=== PATIENT | female | born 1945 | race Caucasian/White ===

== ENCOUNTER 2017-10-28 16:02 | Inpatient (IN) | payer MEDICARE, MEDICAID ==
[2017-10-28] VITALS (8 sets, daily range): BP systolic 105–125; BP diastolic 58–79
[~2017-10-28] VITALS: Ht 157.5 cm; Wt 79.7 kg
[~2017-10-28 16:02] MED LIST: ASP81EC PO; BECL0.07 IN; METH5TAB77 PO; METO25TA5 PO; MON10T PO; PAR20T PO; PRAV20TA3 PO; SOLI5TAB6 PO
[2017-10-28] MEDS ORDERED: SODIUM CHLORIDE 0.9% 1,000 ML IV ONE (16:30)
[2017-10-28 16:39] LABS: Neutrophils # (auto) 5.7 uL; Nucleated Red Blood Cells % 0.1 %
[2017-10-28 16:41] LABS: Basophils # (auto) 0.1 uL; Basophils % (auto) 0.9 % (0.0-2.0); Eosinophils # (auto) 0 uL; Eosinophils % (auto) 0.6 % (0.0-7.0); Hematocrit 19.1 % (36.0-46.0); Lymphocytes # (auto) 1.2 uL; Lymphocytes % (auto) 16.3 % (10.0-50.0); Mean Corpuscular Hgb Conc. 29.9 g/dL (32.0-36.0); Mean Corpuscular Volume 70.1 fL (80.0-100.0); Monocytes # (auto) 0.4 uL; Neutrophils % (auto) 76.2 % (37.0-80.0); Platelet Count (auto) 385 10^3/uL (140-450); Red Blood Cells 2.73 10^6/uL (4.0-5.20); Red Cell Distribution Width 19.1 % (11.8-14.3); White Blood Cell 7.5 10^3/uL (4.4-10.8)
[2017-10-28 16:55] LABS: Albumin 2.8 g/dL (3.4-5.0); Calcium 8.2 mg/dL (8.5-10.1); Potassium 3.1 mmol/L (3.5-5.1)
[2017-10-28 16:57] LABS: BUN/Creatinine Ratio 8.3
[2017-10-28 17:00] LABS: Hemoglobin 5.7 g/dL (12.2-16.2)
[2017-10-28 17:01] LABS: Bilirubin, Total 0.2 mg/dL (0.2-1.0); Total Protein 6.4 g/dL (6.4-8.2)
[2017-10-28 17:10] LABS: Urine Bacteria MANY /hpf (None Seen); Urine Blood 1+ /uL (Negative); Urine Mucus FEW (None Seen); Urine Specific Gravity 1.015 (1.001-1.035); Urine WBC 1202 /hpf (0 - 5); Urine WBC Clumps PRESENT /hpf (None Seen)
[2017-10-28 17:11] LABS: INR 0.98 (0.9-1.15); Partial Thromboplastin Time 19.4 sec (22.64-33.71); Prothrombin Time 10.7 sec (9.37-12.3)
[2017-10-28] MEDS ORDERED: MORPHINE SULFATE 4 MG/ML SYR/VIAL IV PRN ×2 (18:00)
[2017-10-28] MEDS ORDERED: POTASSIUM CHLORIDE 8 MEQ TAB PO ONE (18:00)
[2017-10-28] MEDS ORDERED: NITROGLYCERIN 0.4 MG SL TAB SL PRN (18:00)
[2017-10-28] MEDS ORDERED: TEMAZEPAM 15 MG CAP PO PRN (18:00)
[2017-10-28] MEDS ORDERED: DOCUSATE SOD 100 MG CAP PO PRN (18:00)
[2017-10-28] MEDS: BUDESONIDE (INHALATION) 0.5 MG/2 ML NEB NEB SCH (18:26)
[2017-10-28] MEDS: SODIUM CHLORIDE 0.9% 1,000 ML IV SCH (18:36)
[2017-10-28] MEDS: FAMOTIDINE 20 MG TAB PO SCH (18:37)
[2017-10-28] MEDS: BOOST PLUS 8 ounce PO SCH (19:15)
[2017-10-28] MEDS ORDERED: cefTRIAXone 1GM/10ml IVPUSH 10 ML IV ONE (19:30)
[2017-10-28] MEDS: METOPROLOL TARTRATE 25 MG TAB PO SCH (22:00)
[2017-10-28] MEDS ORDERED: QVAR 40MCG IN SCH (22:00)
[2017-10-28] MEDS: MONTELUKAST SODIUM 10 MG TAB PO SCH (22:08)
[2017-10-28] MEDS: PRAVASTATIN SODIUM 20 MG TAB PO SCH (22:08)
[2017-10-29] VITALS (10 sets, daily range): BP systolic 103–130; BP diastolic 60–81
[2017-10-29] MEDS ORDERED: HYDR12.56 PO (06:06)
[2017-10-29] MEDS ORDERED: OMEP20CA74 PO (06:06)
[2017-10-29] MEDS ORDERED: GABA100C9 PO (06:06)
[2017-10-29] MEDS ORDERED: LORA-655 PO (06:07)
[2017-10-29 06:30] LABS: Eosinophils # (auto) 0.1 uL; Hemoglobin 7.6 g/dL (12.2-16.2); Monocytes # (auto) 0.7 uL
[2017-10-29 06:34] LABS: Basophils # (auto) 0 uL; Basophils % (auto) 0.5 % (0.0-2.0); Eosinophils % (auto) 1.3 % (0.0-7.0); Hematocrit 23.8 % (36.0-46.0); Lymphocytes # (auto) 2.4 uL; Lymphocytes % (auto) 32.3 % (10.0-50.0); Mean Corpuscular Hemoglobin 23.8 pg (28.0-32.0); Mean Corpuscular Volume 74.3 fL (80.0-100.0); Neutrophils # (auto) 4.3 uL; Neutrophils % (auto) 56.9 % (37.0-80.0); Nucleated Red Blood Cells % 0.3 %; Platelet Count (auto) 306 10^3/uL (140-450); Red Blood Cells 3.21 10^6/uL (4.0-5.20); White Blood Cell 7.5 10^3/uL (4.4-10.8)
[2017-10-29 06:38] LABS: Red Cell Distribution Width 20.6 % (11.8-14.3)
[2017-10-29 06:56] LABS: Albumin 2.6 g/dL (3.4-5.0); BUN/Creatinine Ratio 12.2; Bilirubin, Total 0.4 mg/dL (0.2-1.0); Calcium 8.9 mg/dL (8.5-10.1); Potassium 3.1 mmol/L (3.5-5.1); Total Protein 5.8 g/dL (6.4-8.2)
[2017-10-29] MEDS: BUDESONIDE (INHALATION) 0.5 MG/2 ML NEB NEB SCH ×2 (07:02→22:05)
[2017-10-29] MEDS: BOOST PLUS 8 ounce PO SCH ×3 (07:39→17:36)
[2017-10-29] MEDS: ACETAMINOPHEN 325 MG TAB PO PRN (08:18)
[2017-10-29] MEDS: cefTRIAXone 1GM/10ml IVPUSH 10 ML IV SCH (09:12)
[2017-10-29] MEDS: VESICARE 5MG PO SCH (09:29)
[2017-10-29] MEDS: FAMOTIDINE 20 MG TAB PO SCH (09:33)
[2017-10-29] MEDS: METHIMAZOLE 5 MG TAB PO SCH (09:33)
[2017-10-29] MEDS: PARoxetine 20 MG TAB PO SCH (09:33)
[2017-10-29] MEDS: METOPROLOL TARTRATE 25 MG TAB PO SCH ×2 (09:33→21:44)
[2017-10-29] MEDS: MULTIPLE VITAMIN TAB PO SCH (09:33)
[2017-10-29] MEDS ORDERED: POTASSIUM CHL 20 Meq TABLET PO ONE (15:30)
[2017-10-29] MEDS: HYDROcodone-ACET 5/325MG TAB PO PRN ×2 (16:20→21:45)
[2017-10-29] MEDS: SODIUM CHLORIDE 0.9% 1,000 ML IV SCH (16:21)
[2017-10-29] MEDS: PRAVASTATIN SODIUM 20 MG TAB PO SCH (21:44)
[2017-10-29] MEDS: MONTELUKAST SODIUM 10 MG TAB PO SCH (21:44)
[2017-10-30] MEDS: SODIUM CHLORIDE 0.9% 1,000 ML IV SCH ×2 (03:17→22:28)
[2017-10-30 05:18] VITALS: BP 130/80
[2017-10-30 05:50] LABS: Basophils # (auto) 0 uL; Basophils % (auto) 0.5 % (0.0-2.0); Eosinophils # (auto) 0.1 uL; Hematocrit 23.2 % (36.0-46.0); Lymphocytes % (auto) 28.4 % (10.0-50.0); Nucleated Red Blood Cells % 0.2 %; Red Blood Cells 3.11 10^6/uL (4.0-5.20)
[2017-10-30 05:53] LABS: Eosinophils % (auto) 1.4 % (0.0-7.0); Hemoglobin 7.5 g/dL (12.2-16.2); Lymphocytes # (auto) 2.3 uL; Mean Corpuscular Hgb Conc. 32.2 g/dL (32.0-36.0); Mean Corpuscular Volume 74.6 fL (80.0-100.0); Monocytes # (auto) 0.6 uL; Neutrophils # (auto) 5.1 uL; Neutrophils % (auto) 62.7 % (37.0-80.0); Platelet Count (auto) 304 10^3/uL (140-450); White Blood Cell 8.2 10^3/uL (4.4-10.8)
[2017-10-30 06:15] LABS: Red Cell Distribution Width 21.1 % (11.8-14.3)
[2017-10-30 06:39] LABS: Albumin 2.6 g/dL (3.4-5.0); BUN/Creatinine Ratio 14.8; Bilirubin, Total 0.3 mg/dL (0.2-1.0); Calcium 9.2 mg/dL (8.5-10.1); Potassium 3.8 mmol/L (3.5-5.1); Total Protein 5.6 g/dL (6.4-8.2)
[2017-10-30] MEDS: BUDESONIDE (INHALATION) 0.5 MG/2 ML NEB NEB SCH ×2 (06:46→21:50)
[2017-10-30 08:00] VITALS: BP 127/77
[2017-10-30] MEDS: BOOST PLUS 8 ounce PO SCH ×3 (08:00→19:30)
[2017-10-30] MEDS: cefTRIAXone 1GM/10ml IVPUSH 10 ML IV SCH (09:35)
[2017-10-30] MEDS: POTASSIUM CHL 20 Meq TABLET PO SCH (09:36)
[2017-10-30] MEDS: MULTIPLE VITAMIN TAB PO SCH (09:36)
[2017-10-30] MEDS: METOPROLOL TARTRATE 25 MG TAB PO SCH ×2 (09:36→22:29)
[2017-10-30] MEDS: FAMOTIDINE 20 MG TAB PO SCH (09:36)
[2017-10-30] MEDS: METHIMAZOLE 5 MG TAB PO SCH (09:37)
[2017-10-30] MEDS: PARoxetine 20 MG TAB PO SCH (09:37)
[2017-10-30] MEDS ORDERED: VANCOMYCIN 1GM/250ML 250 ML IV ONE (10:00)
[2017-10-30] MEDS ORDERED: LORazepam 0.5 MG TAB PO PRN (10:00)
[2017-10-30] MEDS: VESICARE 5MG PO SCH (10:00)
[2017-10-30] MEDS ORDERED: VANCOMYCIN PER PHARMACY 0 MG IV SCH (10:00)
[2017-10-30] MEDS: ONDANSETRON HCL 4 MG/2 ML VIAL IV PRN (10:26)
[2017-10-30 12:41] VITALS: BP 130/80
[2017-10-30] MEDS: ceFAZolin 1GM/50ML 50 ML IV SCH ×2 (14:55→22:29)
[2017-10-30 17:00] VITALS: BP 122/81
[2017-10-30 22:00] VITALS: BP 130/78
[2017-10-30] MEDS ORDERED: LORazepam 2MG/ML-1ML VIAL IV PRN (22:00)
[2017-10-30] MEDS: PRAVASTATIN SODIUM 20 MG TAB PO SCH (22:30)
[2017-10-30] MEDS: MONTELUKAST SODIUM 10 MG TAB PO SCH (22:30)
[2017-10-31] MEDS: ACETAMINOPHEN 325 MG TAB PO PRN (03:56)
[2017-10-31 05:00] VITALS: BP 124/75
[2017-10-31] MEDS: ceFAZolin 1GM/50ML 50 ML IV SCH ×3 (06:07→22:39)
[2017-10-31 07:24] LABS: Hemoglobin 7.6 g/dL (12.2-16.2); Lymphocytes # (auto) 2.3 uL; Lymphocytes % (auto) 26.4 % (10.0-50.0); Mean Corpuscular Volume 74.7 fL (80.0-100.0); Monocytes % (auto) 7.5 % (0.0-12.0); White Blood Cell 8.7 10^3/uL (4.4-10.8)
[2017-10-31 07:26] LABS: Albumin 2.7 g/dL (3.4-5.0); BUN/Creatinine Ratio 12.3; Bilirubin, Total 0.3 mg/dL (0.2-1.0); Calcium 9.3 mg/dL (8.5-10.1); Potassium 3.8 mmol/L (3.5-5.1)
[2017-10-31 07:27] LABS: Basophils # (auto) 0 uL; Basophils % (auto) 0.5 % (0.0-2.0); Eosinophils # (auto) 0.1 uL; Eosinophils % (auto) 1.4 % (0.0-7.0); Hematocrit 24.5 % (36.0-46.0); Mean Corpuscular Hemoglobin 23.2 pg (28.0-32.0); Monocytes # (auto) 0.7 uL; Neutrophils # (auto) 5.6 uL; Neutrophils % (auto) 64.2 % (37.0-80.0); Nucleated Red Blood Cells % 0.1 %; Platelet Count (auto) 332 10^3/uL (140-450); Red Blood Cells 3.29 10^6/uL (4.0-5.20)
[2017-10-31] MEDS: BOOST PLUS 8 ounce PO SCH ×3 (08:00→18:00)
[2017-10-31 08:10] LABS: Red Cell Distribution Width 21.2 % (11.8-14.3)
[2017-10-31 09:00] VITALS: BP 130/90
[2017-10-31] MEDS: MULTIPLE VITAMIN TAB PO SCH (09:16)
[2017-10-31] MEDS: PARoxetine 20 MG TAB PO SCH (09:17)
[2017-10-31] MEDS: POTASSIUM CHL 20 Meq TABLET PO SCH (09:18)
[2017-10-31] MEDS: FAMOTIDINE 20 MG TAB PO SCH (09:18)
[2017-10-31] MEDS: METHIMAZOLE 5 MG TAB PO SCH (09:19)
[2017-10-31] MEDS: METOPROLOL TARTRATE 25 MG TAB PO SCH ×2 (09:21→23:15)
[2017-10-31] MEDS: VESICARE 5MG PO SCH (09:28)
[2017-10-31] MEDS: BUDESONIDE (INHALATION) 0.5 MG/2 ML NEB NEB SCH ×2 (10:40→22:19)
[2017-10-31] MEDS: VANCOMYCIN 1GM/250ML 250 ML IV SCH (11:27)
[2017-10-31] MEDS: SODIUM CHLORIDE 0.9% 1,000 ML IV SCH (13:48)
[2017-10-31 16:00] VITALS: BP 125/84
[2017-10-31 19:13] VITALS: BP 125/84
[2017-10-31 22:00] VITALS: BP 142/83
[2017-10-31] MEDS: PRAVASTATIN SODIUM 20 MG TAB PO SCH (22:00)
[2017-10-31] MEDS: OXYBUTYNIN CHL 5 MG TAB PO SCH (23:14)
[2017-10-31] MEDS: PANTOPRAZOLE 40 MG TAB PO SCH (23:15)
[2017-10-31] MEDS: MONTELUKAST SODIUM 10 MG TAB PO SCH (23:16)
[2017-11-01 05:00] VITALS: BP 142/86
[2017-11-01] MEDS: SODIUM CHLORIDE 0.9% 1,000 ML IV SCH (05:17)
[2017-11-01 06:09] LABS: Basophils # (auto) 0.1 uL; Eosinophils # (auto) 0.1 uL; Hemoglobin 7.7 g/dL (12.2-16.2); Monocytes # (auto) 0.6 uL
[2017-11-01 06:12] LABS: Basophils % (auto) 0.7 % (0.0-2.0); Eosinophils % (auto) 1.9 % (0.0-7.0); Hematocrit 24.7 % (36.0-46.0); Lymphocytes # (auto) 2.1 uL; Lymphocytes % (auto) 28.1 % (10.0-50.0); Mean Corpuscular Hemoglobin 23.3 pg (28.0-32.0); Mean Corpuscular Hgb Conc. 31.1 g/dL (32.0-36.0); Mean Corpuscular Volume 74.9 fL (80.0-100.0); Monocytes % (auto) 8.9 % (0.0-12.0); Neutrophils # (auto) 4.4 uL; Neutrophils % (auto) 60.4 % (37.0-80.0); Nucleated Red Blood Cells % 0.2 %; Platelet Count (auto) 322 10^3/uL (140-450); White Blood Cell 7.3 10^3/uL (4.4-10.8)
[2017-11-01 06:23] LABS: Red Cell Distribution Width 21.6 % (11.8-14.3)
[2017-11-01] MEDS: ceFAZolin 1GM/50ML 50 ML IV SCH ×2 (06:25→18:32)
[2017-11-01] MEDS: BUDESONIDE (INHALATION) 0.5 MG/2 ML NEB NEB SCH ×2 (06:29→21:59)
[2017-11-01 06:31] LABS: Albumin 2.4 g/dL (3.4-5.0); BUN/Creatinine Ratio 12.4; Calcium 9.2 mg/dL (8.5-10.1); Potassium 4.1 mmol/L (3.5-5.1)
[2017-11-01 06:41] LABS: Bilirubin, Total 0.3 mg/dL (0.2-1.0); Total Protein 5.6 g/dL (6.4-8.2)
[2017-11-01] MEDS: BOOST PLUS 8 ounce PO SCH ×3 (08:00→18:00)
[2017-11-01 09:30] VITALS: BP 130/87
[2017-11-01] MEDS: MULTIPLE VITAMIN TAB PO SCH (10:14)
[2017-11-01] MEDS: POTASSIUM CHL 20 Meq TABLET PO SCH (10:15)
[2017-11-01] MEDS: METHIMAZOLE 5 MG TAB PO SCH (10:16)
[2017-11-01] MEDS: PARoxetine 20 MG TAB PO SCH (10:16)
[2017-11-01] MEDS: PANTOPRAZOLE 40 MG TAB PO SCH ×2 (10:16→22:29)
[2017-11-01] MEDS: OXYBUTYNIN CHL 5 MG TAB PO SCH ×2 (10:16→22:27)
[2017-11-01] MEDS: METOPROLOL TARTRATE 25 MG TAB PO SCH ×2 (10:18→22:28)
[2017-11-01 12:39] VITALS: BP 141/87
[2017-11-01] MEDS: VANCOMYCIN 1GM/250ML 250 ML IV SCH (13:22)
[2017-11-01 21:30] VITALS: BP 123/71
[2017-11-01] MEDS: PRAVASTATIN SODIUM 20 MG TAB PO SCH (22:00)
[2017-11-01] MEDS: MONTELUKAST SODIUM 10 MG TAB PO SCH (22:27)
[2017-11-02] MEDS: ceFAZolin 1GM/50ML 50 ML IV SCH ×3 (02:22→18:45)
[2017-11-02] MEDS: SODIUM CHLORIDE 0.9% 1,000 ML IV SCH ×2 (04:30→14:37)
[2017-11-02 06:34] VITALS: BP 141/78
[2017-11-02] MEDS: BOOST PLUS 8 ounce PO SCH ×3 (08:00→18:00)
[2017-11-02 09:00] VITALS: BP_SYST 115; BP_SYST 155; BP_DIAS 89
[2017-11-02] MEDS: BUDESONIDE (INHALATION) 0.5 MG/2 ML NEB NEB SCH ×2 (09:40→22:19)
[2017-11-02] MEDS: POTASSIUM CHL 20 Meq TABLET PO SCH (10:00)
[2017-11-02] MEDS: ONDANSETRON HCL 4 MG/2 ML VIAL IV PRN ×2 (10:39→18:44)
[2017-11-02] MEDS: METHIMAZOLE 5 MG TAB PO SCH (10:39)
[2017-11-02] MEDS: PANTOPRAZOLE 40 MG TAB PO SCH ×2 (10:40→22:38)
[2017-11-02] MEDS: MULTIPLE VITAMIN TAB PO SCH (10:40)
[2017-11-02] MEDS: OXYBUTYNIN CHL 5 MG TAB PO SCH ×2 (10:40→22:40)
[2017-11-02] MEDS: METOPROLOL TARTRATE 25 MG TAB PO SCH ×2 (10:42→22:39)
[2017-11-02] MEDS: PARoxetine 20 MG TAB PO SCH (10:42)
[2017-11-02] MEDS: ACETAMINOPHEN 325 MG TAB PO PRN (11:08)
[2017-11-02] MEDS: VANCOMYCIN 1GM/250ML 250 ML IV SCH (11:49)
[2017-11-02] MEDS ORDERED: traMADol HCL 50 MG TAB PO PRN (12:15)
[2017-11-02 17:00] VITALS: BP 121/73
[2017-11-02 21:51] VITALS: BP 123/76
[2017-11-02] MEDS: PRAVASTATIN SODIUM 20 MG TAB PO SCH (22:00)
[2017-11-02] MEDS: MONTELUKAST SODIUM 10 MG TAB PO SCH (22:40)
[2017-11-03] MEDS: ceFAZolin 1GM/50ML 50 ML IV SCH ×3 (02:00→18:49)
[2017-11-03 05:30] VITALS: BP 127/83
[2017-11-03 06:49] LABS: Basophils # (auto) 0.1 uL; Eosinophils # (auto) 0.1 uL; Hemoglobin 7.6 g/dL (12.2-16.2); Lymphocytes # (auto) 1.9 uL; Monocytes # (auto) 0.6 uL
[2017-11-03 06:52] LABS: Basophils % (auto) 0.7 % (0.0-2.0); Eosinophils % (auto) 1.5 % (0.0-7.0); Hematocrit 24.4 % (36.0-46.0); Lymphocytes % (auto) 28.6 % (10.0-50.0); Mean Corpuscular Hemoglobin 23.2 pg (28.0-32.0); Mean Corpuscular Hgb Conc. 31.3 g/dL (32.0-36.0); Mean Corpuscular Volume 74.2 fL (80.0-100.0); Neutrophils % (auto) 60.2 % (37.0-80.0); Nucleated Red Blood Cells % 0.1 %; Platelet Count (auto) 307 10^3/uL (140-450); White Blood Cell 6.7 10^3/uL (4.4-10.8)
[2017-11-03 07:05] LABS: INR 1.06 (0.9-1.15); Partial Thromboplastin Time 25.9 sec (22.64-33.71); Prothrombin Time 11.6 sec (9.37-12.3); Red Cell Distribution Width 21.9 % (11.8-14.3)
[2017-11-03 07:08] LABS: BUN/Creatinine Ratio 11.2; Calcium 8.6 mg/dL (8.5-10.1); Potassium 3.8 mmol/L (3.5-5.1)
[2017-11-03] MEDS: SODIUM CHLORIDE 0.9% 1,000 ML IV SCH ×2 (07:17→21:16)
[2017-11-03] MEDS: BOOST PLUS 8 ounce PO SCH ×3 (08:00→18:00)
[2017-11-03] MEDS: ONDANSETRON HCL 4 MG/2 ML VIAL IV PRN ×2 (09:55→18:50)
[2017-11-03] MEDS: METOPROLOL TARTRATE 25 MG TAB PO SCH ×2 (09:59→21:16)
[2017-11-03] MEDS: OXYBUTYNIN CHL 5 MG TAB PO SCH ×2 (09:59→21:15)
[2017-11-03] MEDS: POTASSIUM CHL 20 Meq TABLET PO SCH (09:59)
[2017-11-03] MEDS: PANTOPRAZOLE 40 MG TAB PO SCH ×2 (10:00→21:16)
[2017-11-03] MEDS: MULTIPLE VITAMIN TAB PO SCH (10:00)
[2017-11-03] MEDS: BUDESONIDE (INHALATION) 0.5 MG/2 ML NEB NEB SCH ×2 (10:00→19:10)
[2017-11-03] MEDS: PARoxetine 20 MG TAB PO SCH (10:00)
[2017-11-03] MEDS: METHIMAZOLE 5 MG TAB PO SCH (10:00)
[2017-11-03] MEDS ORDERED: LORazepam 2MG/ML-1ML VIAL IV ONE (13:15)
[2017-11-03] MEDS ORDERED: MIDAZOLAM HCL 1MG/1ML-2 ML VIAL ONE (13:51)
[2017-11-03] MEDS ORDERED: fentaNYL CITRATE 100 MCG/2 ML VL ONE (13:51)
[2017-11-03] MEDS ORDERED: PROPOFOL 10 MG/ML 20 ML IV ONE (13:52)
[2017-11-03] MEDS ORDERED: ePHEDrine SULFATE 50 MG/ML AMP IV PRN (15:00)
[2017-11-03] MEDS ORDERED: hydrALAZINE HCL 20 MG/ML VL IV PRN (15:00)
[2017-11-03] MEDS ORDERED: ONDANSETRON HCL 4 MG/2 ML VIAL IV ONE (15:00)
[2017-11-03] MEDS ORDERED: fentaNYL CITRATE 100 MCG/2 ML VL IV ONE (15:00)
[2017-11-03 17:00] VITALS: BP 131/76
[2017-11-03 21:05] VITALS: BP 131/76
[2017-11-03] MEDS: PRAVASTATIN SODIUM 20 MG TAB PO SCH (21:15)
[2017-11-03] MEDS: MONTELUKAST SODIUM 10 MG TAB PO SCH (21:16)
[2017-11-03 21:30] VITALS: BP 132/87
[2017-11-04] MEDS: ceFAZolin 1GM/50ML 50 ML IV SCH ×3 (02:05→17:39)
[2017-11-04 05:00] VITALS: BP 136/79
[2017-11-04] MEDS: BUDESONIDE (INHALATION) 0.5 MG/2 ML NEB NEB SCH (07:31)
[2017-11-04] MEDS: MULTIPLE VITAMIN TAB PO SCH (08:53)
[2017-11-04] MEDS: PARoxetine 20 MG TAB PO SCH (08:54)
[2017-11-04] MEDS: POTASSIUM CHL 20 Meq TABLET PO SCH (08:54)
[2017-11-04] MEDS: PANTOPRAZOLE 40 MG TAB PO SCH (08:54)
[2017-11-04] MEDS: METHIMAZOLE 5 MG TAB PO SCH (08:54)
[2017-11-04] MEDS: BOOST PLUS 8 ounce PO SCH ×3 (08:55→17:53)
[2017-11-04] MEDS: OXYBUTYNIN CHL 5 MG TAB PO SCH (08:55)
[2017-11-04] MEDS: ACETAMINOPHEN 325 MG TAB PO PRN (08:56)
[2017-11-04 09:00] VITALS: BP 120/89
[2017-11-04] MEDS: METOPROLOL TARTRATE 25 MG TAB PO SCH (10:00)
[2017-11-04 17:00] VITALS: BP 131/95
== END 2017-11-04 19:20 | disposition home or self-care (01) | DRG 377 ==
LOC: EDBD 16:02 → ER 16:07 → TELE 16:08 → TELE-WESTW 20:06 → WEST WING 11-03 09:38
PROVIDERS: ADMIT Internal Medicine; ATTEND Family Medicine
PROC: 30233N1 Transfusion of Nonautologous Red Blood Cells into Peripheral Vein, Percutaneous Approach (ICD-10-PCS; principal; 2017-10-28)
PROC: 0DB68ZX Excision of Stomach, Via Natural or Artificial Opening Endoscopic, Diagnostic (ICD-10-PCS; 2017-11-03)
DX: K29.71 Gastritis, unspecified, with bleeding (principal); G93.41 Metabolic encephalopathy; N17.0 Acute kidney failure with tubular necrosis; E44.0 Moderate protein-calorie malnutrition; N18.4 Chronic kidney disease, stage 4 (severe); N39.0 Urinary tract infection, site not specified; K25.4 Chronic or unspecified gastric ulcer with hemorrhage; D50.0 Iron deficiency anemia secondary to blood loss (chronic); E83.51 Hypocalcemia; J44.9 Chronic obstructive pulmonary disease, unspecified; M19.90 Unspecified osteoarthritis, unspecified site; E78.00 Pure hypercholesterolemia, unspecified; E78.5 Hyperlipidemia, unspecified; E87.6 Hypokalemia; E89.0 Postprocedural hypothyroidism; F32.9 Major depressive disorder, single episode, unspecified; I12.9 Hypertensive chronic kidney disease with stage 1 through stage 4 chronic kidney disease, or unspecified chronic kidney disease; G89.29 Other chronic pain; M54.9 Dorsalgia, unspecified; I25.10 Atherosclerotic heart disease of native coronary artery without angina pectoris; I49.3 Ventricular premature depolarization; I67.2 Cerebral atherosclerosis; I95.1 Orthostatic hypotension; K42.9 Umbilical hernia without obstruction or gangrene; K44.9 Diaphragmatic hernia without obstruction or gangrene; Z79.891 Long term (current) use of opiate analgesic; I25.2 Old myocardial infarction; Z82.0 Family history of epilepsy and other diseases of the nervous system; Z82.49 Family history of ischemic heart disease and other diseases of the circulatory system; Z82.5 Family history of asthma and other chronic lower respiratory diseases; Z83.3 Family history of diabetes mellitus; Z85.3 Personal history of malignant neoplasm of breast; Z88.8 Allergy status to other drugs, medicaments and biological substances
CPT/HCPCS: 36415; 36430; 43239; 51702; 70450; 70551; 71045; 71250; 74176; 80048; 80053; 80202; 81001; 82270; 83540; 83605; 83880; 84484; 85025; 85610; 85730; 86850; 86900; 86901; 86920; 87040; 87081; 87086; 93005; 93306; 94640; 95819; 96361; 96374; 97116; 97163; 97530; 99291; J0690; J2250; J2405; J2704